=== PATIENT | male | born 1990 | race Caucasian/White ===

== ENCOUNTER 2022-09-23 15:40 | Emergency (ER) | payer MEDICAID ==
[~2022-09-23] VITALS: Ht 185.4 cm; Wt 113.4 kg
[2022-09-23] MEDS ORDERED: TDAP [DIPH/PERTUSSIS/TET] 0.5 ML VIAL IM ONE ×2 (16:00→16:06)
--- NOTE | 2022-09-23 16:00 | NUR ---
RECEIVED PT 32 YRS MALE WALKING IN FROM HOME S/P FALL DOWN LACERATION ON RT LEG OPEN SKIN
--- NOTE | 2022-09-23 16:10 | NUR ---
SEEN BY DR. RUBIN
--- NOTE | 2022-09-23 16:20 | NUR ---
XRAY AT BEDSIDE
--- NOTE | 2022-09-23 16:20 | NUR ---
IRRGATE WOUND WITH NS BY ER TACH
--- NOTE | 2022-09-23 16:45 | NUR ---
DR. RUBIN AT BED SIDE SUTURE WAS DONE AT BED SIDE
--- NOTE | 2022-09-23 17:05 | NUR ---
DRESSING APPLED BY ED TACH
--- NOTE | 2022-09-23 17:12 | NUR ---
Patient discharged to home in stable condition. Written and verbal after care instructions given. Patient verbalizes understanding of instruction.
[2022-09-23] MEDS ORDERED: IBUP-1955 PO (17:14)
[2022-09-23 17:19] VITALS: BP 119/75
== END 2022-09-23 17:20 | disposition home or self-care (01) ==
LOC: ER 15:43
DX: S81.811A Laceration without foreign body, right lower leg, initial encounter (principal); J45.909 Unspecified asthma, uncomplicated; Z60.2 Problems related to living alone; W22.8XXA Striking against or struck by other objects, initial encounter; Y93.89 Activity, other specified; Y92.89 Other specified places as the place of occurrence of the external cause; Y99.0 Civilian activity done for income or pay
CPT/HCPCS: 99283; 12002; 90471; 90715; 73590; A6403